=== PATIENT | female | born 1955 | race Caucasian/White ===

== ENCOUNTER → 2016-08-30 | Outpatient (CLI) | payer OTHER ==
[~2016-08-30] VITALS: Ht 157.5 cm; Wt 60.3 kg
[~2016-08-30] MED LIST: ASPIR 8181 MG PO; ATORVASTATIN CA40 MG PO; CALCIUM 500 +1 EAC5 PO; CENTRUM SILVER1 EAC4 PO; MEDROL DOSPAK21 TA1 PO; MOBIC15 MG PO; SULFACETAMIDE S TP; VITAMIN B-12500 MCG PO; VITAMIN D2000 UNIT PO
--- NOTE | ~2016-08-30 | HPC ---
[facility] [address] PAIN MANAGEMENT CONSULTATION Name: CATIE WYLIE Room #: REG LEELA Otto.#: [id number] Admission: 08/30/16 Attend Phys: Jignesh Vera MD Discharge: Date of : 53 Report #: [id number] THIS REPORT FOR: //name// CC: Jignesh Holguin MD DATE OF SERVICE: 08/30/2016 DATE OF REGISTRATION: 08/30/2016. REASON FOR VISIT: Followup visit for cervicalgia and right sacroiliac joint pain. SUBJECTIVE: The patient returns to pain clinic today to discuss ongoing treatment of her right hip pain. Today, her pain seems to be emanating a bit more from the L5-S1 facet region where she has x-ray evidence of spondylosis with an arthritic joint that is unilateral to that side. At her last visit, we suggested weekly sessions of physical therapy, which she has found to be somewhat helpful, and she is also using meloxicam. I renewed her meloxicam for her today, and we have reviewed the side effects of anti-inflammatories. I talked about an injection, but she would prefer to trial a instead before undergoing any sort of injection treatments. We talked about the goals and hopes for injections and medications. PHYSICAL EXAMINATION: GENERAL: She is a very fit appearing 61-year-old. She moves from sitting to standing position, ambulates with a brisk and steady gait. VITAL SIGNS: Blood pressure is 108/67, heart rate 70. BACK: She has no pain with forward flexion and mild pain with back extension. Tenderness is located overlying the lumbar facet region in the lumbosacral spine. IMPRESSION: Lumbar spondylosis, now suggestive of L5-S1 facet arthropathy and spondylosis. PLAN: 1. Medrol Dosepak. 2. Ongoing use of nonsteroidal anti-inflammatory drugs, meloxicam. Side effects were reviewed, and the possibility of some increased risk of GI side effects with the combination of both meloxicam and methylprednisolone. [facility] [address] [place] [address] PAIN MANAGEMENT CONSULTATION Name: CATIE WYLIE Room #: REG [facility]#: [id number] Admission: 08/30/16 Attend Phys: Jignesh Vera MD Discharge: Date of : 53 Report #: [id number] 3. Follow up with ongoing physical therapy and exercise. 4. Injection if requested. By: [id number] Jignesh Vera MD /nt
[2016-08-30 13:24] VITALS: BP 108/67
== END | disposition home or self-care (01) ==
LOC: PAIN 07:11
DX: M54.2 Cervicalgia (principal); M53.3 Sacrococcygeal disorders, not elsewhere classified; M47.896 Other spondylosis, lumbar region

== ENCOUNTER → 2016-12-27 | Outpatient (CLI) | payer OTHER ==
[~2016-12-27] VITALS: Ht 157.5 cm; Wt 59.9 kg
--- NOTE | ~2016-12-27 | HPC ---
[facility] [place] [address] PAIN MANAGEMENT CONSULTATION Name: CATIE WYLIE Room #: REG LEELA Otto.#: [id number] Admission: 12/27/16 Attend Phys: Jignesh Vera MD Discharge: Date of : 53 Report #: [id number] THIS REPORT FOR: //name// CC: Jignesh Holguin MD DATE OF SERVICE: 12/27/2016 DATE OF REGISTRATION: 12/27/2016 Followup visit for low back pain. I saw the patient last on 08/30/2016. She has pain consistent with sacroiliac joint mechanism. This is close enough to the L5-S1 facet on the right but there is some question of whether or not there is lumbar spondylosis and facet pain. She is here today to reexamine the diagnosis and also to consider other options for treatment. She so far continued with physical therapy, exercise, has been on nonsteroidal anti-inflammatory drugs including Meloxicam, an obqv-kjl-ysylvdv ibuprofen and Aleve over the last year or so. She has also had a trial of methylprednisolone orally, which provided only minimal and short-term improvement. The pain today is scored at 2 and is worse at 3. It is more of a and it is worse with standing and walking. She would like to feel more confident about its diagnosis and would look at other ways of managing it. She has had an intramuscular injection performed by Dr. Godfrey and his staff. PHYSICAL EXAMINATION: GENERAL: Today, she is a very fit appearing 61-year-old. VITAL SIGNS: Her blood pressure is 106/79, heart rate 72. BMI is 24.1. MUSCULOSKELETAL: Examination of the spine reveals normal alignment, minimal tenderness along midline today. Minimal tenderness over the lumbosacral segment and over L5-S1. She does have point tenderness over the inferior posterior aspect of the sacroiliac joint on the right. A Anthony test is only mildly positive with crossover. Sensation is intact throughout the lower extremity. She has no radicular symptoms whatsoever. Good strength in lower extremities. IMPRESSION: Lumbar spondylosis with sacroiliac joint pain. RECOMMENDATIONS: I have ordered lumbar spine and pelvis MRI without contrast. This pain has now been ongoing for over 18 months. I think it warrants further examination. I discussed the sacroiliac joint, both for therapeutic and diagnostic benefits. I would perform the injection today; however, we will seek a preauthorization [address] [address] PAIN MANAGEMENT CONSULTATION Name: CATIE WYLIE Concepcion Room #: REG CLI Lyndsey#: [id number] Admission: 12/27/16 Attend Phys: Jignesh Vera MD Discharge: Date of : 53 Report #: [id number] and the patient also wants to hold off on injection as she has in the past. I do think that if I provide a local anesthetic injection nicely into the joint with a good arthrogram and her pain disappears then we have our diagnosis. We will see if she comes back for the injection after her MRI. I will be glad to review the results of her MRI with her once they are available. By: [id number] Jignesh Vera MD /nt
[2016-12-27 09:22] VITALS: BP 106/79
== END | disposition home or self-care (01) ==
LOC: PAIN 07:01
DX: M47.896 Other spondylosis, lumbar region (principal); M53.3 Sacrococcygeal disorders, not elsewhere classified; Z98.890 Other specified postprocedural states; Z88.0 Allergy status to penicillin; Z79.82 Long term (current) use of aspirin

== ENCOUNTER → 2017-01-01 | Outpatient (CLI) | payer OTHER | LOC: MRI 09:35 | DX: M47.896 Other spondylosis, lumbar region (principal); M53.3 Sacrococcygeal disorders, not elsewhere classified ==

== ENCOUNTER → 2017-01-24 | Outpatient (CLI) | payer OTHER ==
[~2017-01-24] VITALS: Ht 157.5 cm; Wt 59.2 kg
--- NOTE | ~2017-01-24 | HPC ---
[facility] [place] [address] PAIN MANAGEMENT CONSULTATION Name: CATIE WYLIE Room #: REG LEELA Otto.#: [id number] Admission: 01/24/17 Attend Phys: Jignesh Vera MD Discharge: Date of : 53 Report #: [id number] THIS REPORT FOR: //name// CC: Jignesh Holguin MD DATE OF SERVICE: 01/24/2017 Followup visit for right low back pain with MRI evidence of L5-S1 arthropathy. I reviewed the patient's MRI today. Dr. Luke [place] has read the study for us and has identified fairly definitively her pain generator at L5-S1. Diagnostic injection and/or facet injection with triamcinolone was reviewed today. She has been treated within the last week for the flu with a flu vaccine and we recommend 2 weeks before cortisone injection in order to obtain the best response. She can go forward today with a diagnostic injection with potential for radiofrequency ablation. She is very thorough, I spent quite a bit of time reviewing with her again diagnostic injection, her findings as well as radiofrequency ablation as a final step towards prolonged pain relief. She has elected to go forward with the diagnostic injection today. I should say prior to beginning this that her pain score at rest is zero and with activities only increases to a 2 to a 3. I have discussed the expectations with her. It is clear that this is still quite bothersome to her and she has been in excellent health and condition throughout her life. This pain generator really bothers her, so I think that if we can eliminate it, it will take a lot off her mind. I have discussed the difference between hurting herself and hurting. These are 2 separate things and I think that she can continue with her regular activities as described. I discussed the need to perform some provocative maneuvers following the injection to see if a small amount of local anesthetic on the medial branch of L4 and the dorsal ramus of L5 will eliminate pain. She was confident that she could perform that with us before discharge. IMPRESSION: Lumbar spondylosis secondary to MRI documented L5-S1 arthritis. PROCEDURE: L4 medial branch L5 dorsal ramus injection for diagnosis under fluoroscopic guidance. DESCRIPTION OF PROCEDURE: She was taken to fluoroscopic suite, placed prone, skin prepped with ChloraPrep, skin anesthetized over the L4 medial branch nerve on the L5 transverse process and the L5 dorsal ramus over the sacral ala. A [address] [address] PAIN MANAGEMENT CONSULTATION Name: CATIE WYLIE Concepcion Room #: REG CLI Lyndsey#: [id number] Admission: 01/24/17 Attend Phys: Jignesh Vera MD Discharge: Date of : 53 Report #: [id number] 25-gauge 3-1/2 inch spinal needles were then gently advanced into position on the first attempt and after negative aspiration I injected 0.75 mL of 0.5% bupivacaine at each location. [place] were removed. She was taken to recovery room and 20 minutes later she did a plank in the recovery room with an attempt to try and aggravate pain. This nearly always causes pain and she had none. Before discharge she scored her pain as zero. A followup visit is scheduled for her return to the pain clinic for radiofrequency ablation. I do not believe that further diagnostic injections are necessary for this simple 1 level unilateral procedure. This can be scheduled any time in the next couple of weeks. <ELECTRONICALLY SIGNED> By: Jignesh Vera MD 01/25/17 1322 [id number] 2044 Jignesh Vera MD /nt
[2017-01-24 14:31] VITALS: BP 122/82
== END ==
LOC: PAIN 07:14
DX: M47.897 Other spondylosis, lumbosacral region (principal); F32.9 Major depressive disorder, single episode, unspecified; Z88.0 Allergy status to penicillin; Z79.82 Long term (current) use of aspirin; Z79.899 Other long term (current) drug therapy

== ENCOUNTER → 2017-05-27 | Outpatient (CLI) | payer OTHER ==
[~2017-05-27] VITALS: Ht 157.5 cm; Wt 60.1 kg
[~2017-05-27] MED LIST changes: +MOBIC7.5 MG PO; +NEURONTIN100 MG PO
--- NOTE | ~2017-05-27 | HPC ---
[facility] [place] [employer] [place] [address] PAIN MANAGEMENT CONSULTATION Name: CATIE WYLIE Room #: REG SOLANGEMurray Menjivar.#: [id number] Admission: 05/27/17 Attend Phys: Jignesh Vera MD Discharge: Date of : 53 Report #: [id number] THIS REPORT FOR: //name// CC: Jignesh Holguin DATE OF SERVICE: 05/27/2017 Followup visit for lumbar spondylosis. The patient is back in the clinic, I am sorry to say. She had radiofrequency ablation, which from my perspective went very well. We denervated the L5-S1 facet joint on the right, which had been suggested as the likely pain generator due to her MRI scan. The MRI scan showed advanced facet arthrosis and synovitis involving the facet joints at L5-S1, greater on the right than the left. All of her pain is on the left. No other joints were mentioned. I performed L5 dorsal ramus and L4 medial branch nerve ablations in early March. Her pain basically is back in the same location, but the intensity is only about a 3/10. I am not sure I can do much more for her. She does not want to be on medications, reluctant to start 600 mg of gabapentin 3 times a day that was suggested by Dr. Holguin. She is very cautious about medicine and I suggested that she might begin the titration much slower with 100 mg up to 3 times a day and then can maybe reach the doses that were suggested by Dr. Holguin. I do, however, feel that this is not neuropathic pain and is most likely related to the facet arthropathy that is fairly diagnostic on her MRI scan. PHYSICAL EXAMINATION: She is pleasant, alert and oriented. She is in good shape. She moves from sitting to standing position without difficulty. She has pain with forward flexion and extension. She has a positive LEE ANN reproducing pain into the area of the left sacroiliac joint. There is quite local tenderness there. The pain is also increased in intensity by back extension and relieved somewhat by flexion. IMPRESSION: Lumbar spondylosis, L5-S1 on the right. RECOMMENDATIONS: It is a bit reverse, but she has wanted to avoid cortisone injection in the past. Today, she has wondered if we can try a cortisone injection of the L5-S1 . I am willing to do so. We have had some patients respond very favorably with much relief with this simple injection performed under fluoroscopic guidance. We will have to wait till we get preauthorization [facility] [address] [place] [address] PAIN MANAGEMENT CONSULTATION Name: CATIE WYLIE Room #: REG [facility]#: [id number] Admission: 05/27/17 Attend Phys: Jignesh Vera MD Discharge: Date of : 53 Report #: [id number] to go forward. I will see her back in the pain clinic for a cortisone injection of the L5-S1 facet joint once that has been achieved. <ELECTRONICALLY SIGNED> By: Jignesh Vera MD 06/05/17 [id number] [id number] Jignesh Vera MD /nt
[2017-05-27 13:46] VITALS: BP 112/75
== END ==
LOC: PAIN 07:21
DX: M47.896 Other spondylosis, lumbar region (principal)

== ENCOUNTER → 2019-11-02 | Outpatient (CLI) | payer OTHER ==
[~2019-11-02] VITALS: Ht 157.5 cm; Wt 62.0 kg
[~2019-11-02] MED LIST changes: +APAP650 PO; -ATORVASTATIN CA40 MG PO; +GABAPENTIN800 M1 PO; +LIPITOR80 MG PO; +MELOXICAM15 MG PO; +TUMERIC
[2019-11-02 14:02] VITALS: BP 122/79
--- NOTE | 2019-11-02 14:40 | NUR ---
Pain Clinic Assessment: 1. History of Osteoarthritis: *BACK History of Rheumatoid Arthritis: Not Applicable 2. Height: 5 ft. 1 in. 157.5 cm. Weight: 136.6 lb. oz. 61.961 kg. Patient's BMI: 25.0 3. Vital Signs: BP: 122/79 Pulse: 73 Resp: 14 Temp: 02 Sat: 100 ECG Mon: 4. Pain Intensity: 2-3 5. Fall Risk: Dizziness: N Needs help standing or walking: N Fallen in the last 3 months: N Fall risk comments: 6. Patient on Blood Thinner: None 7. History of Hypertension: N 8. Opioid Therapy greater than 6 weeks: N Opiate Contract Signed: 9. Risk Assessment Tool Provided: 10. Functional Assessment Tool: 11. Recreational Drug Use: Never Drug Type: Tobacco Use: Never Smoker Tobacco Type: Amount or Packs/day: How Many Years: Alcohol Use: Yes Frequency: Quant:
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
== END | disposition home or self-care (01) ==
LOC: RAD 06:56 → PAIN 06:56
PROVIDERS: ATTEND Anesthesiology Pain Medicine
DX: M79.18 Myalgia, other site (principal); M25.552 Pain in left hip; G89.29 Other chronic pain; Z98.890 Other specified postprocedural states; Z79.899 Other long term (current) drug therapy

== ENCOUNTER → 2020-03-21 | Outpatient (CLI) | payer OTHER ==
[~2020-03-21] VITALS: Ht 157.5 cm; Wt 60.3 kg
[~2020-03-21] MED LIST changes: +PROBIOTIC1 EAC7 PO
[2020-03-21 09:49] VITALS: BP 135/82
--- NOTE | 2020-03-21 10:06 | NUR ---
Pain Clinic Assessment: 1. History of Osteoarthritis: *BACK History of Rheumatoid Arthritis: Not Applicable 2. Height: 5 ft. 2 in. 157.5 cm. Weight: 133.0 lb. oz. 60.328 kg. Patient's BMI: 24.3 3. Vital Signs: BP: 135/82 Pulse: 73 Resp: 18 Temp: 02 Sat: 98 ECG Mon: 4. Pain Intensity: 1 5. Fall Risk: Dizziness: N Needs help standing or walking: N Fallen in the last 3 months: N Fall risk comments: 6. Patient on Blood Thinner: None 7. History of Hypertension: N 8. Opioid Therapy greater than 6 weeks: N Opiate Contract Signed: 9. Risk Assessment Tool Provided: 0-low risk 10. Functional Assessment Tool: 11. Recreational Drug Use: Never Drug Type: Tobacco Use: Never Smoker Tobacco Type: Amount or Packs/day: How Many Years: Alcohol Use: Yes Frequency: Weekly Quant: 3/week
== END | disposition home or self-care (01) ==
LOC: PAIN 06:55
PROVIDERS: ATTEND Anesthesiology Pain Medicine
DX: M47.26 Other spondylosis with radiculopathy, lumbar region (principal); M48.061 Spinal stenosis, lumbar region without neurogenic claudication; G89.29 Other chronic pain; Z98.890 Other specified postprocedural states; Z79.899 Other long term (current) drug therapy; Z88.0 Allergy status to penicillin